=== PATIENT | female | born 1960 | race Hispanic/Latino ===

== ENCOUNTER 2021-07-30 08:10 | Outpatient (CLI) | payer SELFPAY | END 2021-07-30 08:11 | disposition home or self-care (01) | LOC: CSHWCC 08:10 | PROVIDERS: ATTEND Nurse Practitioner Family | DX: T25.212D Burn of second degree of left ankle, subsequent encounter (principal); R60.0 Localized edema | CPT/HCPCS: 97607; 99212; G0463 ==

== ENCOUNTER 2021-08-13 15:11 | Outpatient (CLI) | payer OTHER, SELFPAY | END 2021-08-13 15:12 | disposition home or self-care (01) | LOC: CSHWCC 15:11 | PROVIDERS: ATTEND Nurse Practitioner Family | DX: T25.212D Burn of second degree of left ankle, subsequent encounter (principal); R60.0 Localized edema | CPT/HCPCS: 99213; G0463 ==

== ENCOUNTER 2021-08-20 14:58 | Outpatient (CLI) | payer SELFPAY | END 2021-08-20 14:59 | disposition home or self-care (01) | LOC: CSHWCC 14:58 | PROVIDERS: ATTEND Nurse Practitioner Family | DX: T25.212D Burn of second degree of left ankle, subsequent encounter (principal); R60.0 Localized edema | CPT/HCPCS: 99213; G0463 ==

== ENCOUNTER 2021-09-12 13:25 | Outpatient (CLI) | payer SELFPAY | END 2021-09-12 13:26 | disposition home or self-care (01) | LOC: CSHWCC 13:25 | PROVIDERS: ATTEND Nurse Practitioner Family | DX: T25.212D Burn of second degree of left ankle, subsequent encounter (principal); R60.0 Localized edema ==

== ENCOUNTER 2023-10-12 09:19 | Outpatient (CLI) | payer MEDICAID | END 2023-10-12 09:20 | disposition home or self-care (01) | LOC: CSHWCC 09:19 | PROVIDERS: ATTEND Preventive Medicine Undersea and Hyperbaric Medicine | DX: S91.301D Unspecified open wound, right foot, subsequent encounter (principal); E11.622 Type 2 diabetes mellitus with other skin ulcer; L98.499 Non-pressure chronic ulcer of skin of other sites with unspecified severity; I73.9 Peripheral vascular disease, unspecified | CPT/HCPCS: 11043; 99203; G0463 ==

== ENCOUNTER 2023-10-26 14:54 | Outpatient (CLI) | payer MEDICAID | END 2023-10-26 14:55 | disposition home or self-care (01) | LOC: CSHWCC 14:54 | PROVIDERS: ATTEND Nurse Practitioner Family | DX: S91.301D Unspecified open wound, right foot, subsequent encounter (principal); E11.622 Type 2 diabetes mellitus with other skin ulcer; L98.499 Non-pressure chronic ulcer of skin of other sites with unspecified severity; E11.51 Type 2 diabetes mellitus with diabetic peripheral angiopathy without gangrene ==

== ENCOUNTER 2023-11-10 15:05 | Outpatient (CLI) | payer MEDICAID | END 2023-11-10 15:06 | disposition home or self-care (01) | LOC: CSHWCC 15:05 | PROVIDERS: ATTEND Nurse Practitioner Family | DX: S91.301D Unspecified open wound, right foot, subsequent encounter (principal); E11.622 Type 2 diabetes mellitus with other skin ulcer; I73.9 Peripheral vascular disease, unspecified | CPT/HCPCS: 11043 ==

== ENCOUNTER 2024-01-28 15:43 | Outpatient (CLI) | payer SELFPAY | END 2024-01-28 15:44 | disposition home or self-care (01) | LOC: CSHWCC 15:43 | PROVIDERS: ATTEND Nurse Practitioner Family | DX: E11.622 Type 2 diabetes mellitus with other skin ulcer (principal); E11.621 Type 2 diabetes mellitus with foot ulcer; L97.512 Non-pressure chronic ulcer of other part of right foot with fat layer exposed; L97.521 Non-pressure chronic ulcer of other part of left foot limited to breakdown of skin; E11.52 Type 2 diabetes mellitus with diabetic peripheral angiopathy with gangrene; E11.59 Type 2 diabetes mellitus with other circulatory complications; L98.499 Non-pressure chronic ulcer of skin of other sites with unspecified severity | CPT/HCPCS: 99214; G0463 ==